=== PATIENT | male | born 1970 | race Caucasian/White ===

== ENCOUNTER 2017-11-28 23:15 | Inpatient (IN) | payer SELFPAY ==
[2017-11-28] MEDS ORDERED: ONDANSETRON PF 4 MG/2 ML VIAL. ×2 (23:37)
[2017-11-28] MEDS: ONDANSETRON PF 4 MG/2 ML VIAL. IV ×2 (23:45)
[2017-11-28] MEDS: IV NORMAL SALINE 1000ML BAG 1,000 ML IV ×2 (23:45)
[2017-11-29] MEDS: fentaNYL PF VIAL 100 MCG/2 ML VIAL IV ×2 (00:15)
[2017-11-29] MEDS: KETOROLAC 30 MG/ML INJ. IV ×2 (00:15)
[2017-11-29 00:22] LABS: ADD MAN DIFF? YES; BASO % 0 % (0-3); EOS % 0 % (0-3); HEMATOCRIT 42.8 % (39.0-53.0); HEMOGLOBIN 14.6 g/dL (13.0-17.5); LYMPH % 8 % (24-48); MEAN CORPUSCULAR HEMOGLOBIN 30 pg (25-35); MEAN CORPUSCULAR HGB CONC 34 g/dL (31-37); MEAN CORPUSCULAR VOLUME 88 fL (79-100); MONO # 0.7 x10^3/uL (0.0-1.1); MONO % 6 % (0-9); NEUT % 86 % (31-73); PLATELET COUNT 205 x10^3/uL (140-400); RED BLOOD COUNT 4.89 x10^6/uL (4.30-5.70); RED CELL DISTRIBUTION WIDTH 13.9 % (11.5-14.5); WHITE BLOOD COUNT 12.8 x10^3/uL (4.0-11.0)
[2017-11-29 00:28] LABS: BILIRUBIN,URINE NEGATIVE (NEG); CLARITY,URINE CLOUDY; COLOR,URINE YELLOW; GLUCOSE,URINE >=1000 mg/dL (NEG); NITRITE,URINE NEGATIVE (NEG); PROTEIN,URINE 100 mg/dL (NEG-TRACE); UROBILINOGEN,URINE 0.2 mg/dL (0.2 mg/dL)
[2017-11-29 00:35] LABS: ALBUMIN 3.4 g/dL (3.4-5.0); ALBUMIN/GLOBULIN RATIO 0.9 (1.0-1.7); ALK PHOS 114 U/L (46-116); ALT (SGPT) 24 U/L (16-63); ANION GAP 11 (6-14); AST (SGOT) 13 U/L (15-37); BLOOD UREA NITROGEN 20 mg/dL (8-26); BUN/CREATININE RATIO 15 (6-20); CALCIUM 9.1 mg/dL (8.5-10.1); CARBON DIOXIDE 26 mmol/L (21-32); CHLORIDE 98 mmol/L (98-107); CREATININE 1.3 mg/dL (0.7-1.3); GFR 59.4; LIPASE 129 U/L (73-393); SODIUM 135 mmol/L (136-145); TOTAL BILIRUBIN 0.2 mg/dL (0.2-1.0); TOTAL PROTEIN 7.3 g/dL (6.4-8.2)
[2017-11-29 00:36] LABS: GLUCOSE 579 mg/dL (70-99)
[2017-11-29 00:43] LABS: BACTERIA,URINE FEW /HPF (0-FEW); SQUAMOUS EPITHELIAL CELL,UR FEW /LPF; WBC,URINE TNTC /HPF (0-4); YEAST,URINE PRESENT /HPF
[2017-11-29] MEDS ORDERED: ONDANSETRON PF 4 MG/2 ML VIAL. IV ×2 (01:00)
[2017-11-29] MEDS ORDERED: ACETAMINOPHEN 325 MG TABLET. PO ×2 (01:00)
[2017-11-29] MEDS: IV NORMAL SALINE 1000ML BAG 1,000 ML IV ×6 (01:00→17:57)
[2017-11-29] MEDS ORDERED: fentaNYL PF VIAL 100 MCG/2 ML VIAL IV ×2 (01:00)
[2017-11-29 01:18] LABS: % BANDS 3 % (0-9); % EOS 2 % (0-5); % LYMPHS 8 % (24-48); % MONOS 2 % (0-10); % SEGS 85 % (35-66); PLT ESTIMATE ADEQUATE (ADEQUATE)
[2017-11-29 03:14] LABS: POC GLUCOSE 502 mg/dL (70-99)
[2017-11-29] MEDS: INSULIN ASPART 300 UNITS/3 ML INSULN.PEN SQ ×16 (03:40→21:51)
[2017-11-29 03:48] LABS: LACTIC ACID 0.8 mmol/L (0.4-2.0)
[2017-11-29 04:25] LABS: POC GLUCOSE 551 mg/dL (70-99)
[2017-11-29] MEDS ORDERED: DEXTROSE 50% 25 GM / 50ML DISP.SYRIN. IV ×2 (08:00)
[2017-11-29 08:02] LABS: POC GLUCOSE 393 mg/dL (70-99)
[2017-11-29] MEDS: metFORMIN 500 MG TABLET PO ×4 (09:43→17:51)
[2017-11-29 11:34] LABS: POC GLUCOSE 297 mg/dL (70-99)
[2017-11-29] MEDS: TAMSULOSIN 0.4 MG CAP.ER.24H. PO ×4 (12:29→21:43)
[2017-11-29 16:23] LABS: POC GLUCOSE 173 mg/dL (70-99)
[2017-11-29 21:09] LABS: POC GLUCOSE 337 mg/dL (70-99)
[2017-11-29] MEDS: cefTRIAXone IV Push 1 GM VIAL. IVP ×2 (21:42)
[2017-11-29] MEDS: INSULIN DETEMIR 300 UNITS/3 ML INSULN.PEN. SQ ×2 (21:48)
[2017-11-30 05:23] LABS: ADD MAN DIFF? NO
[2017-11-30 05:47] LABS: BASO % 1 % (0-3); EOS # 0.1 x10^3/uL (0.0-0.7); EOS % 2 % (0-3); HEMATOCRIT 34.6 % (39.0-53.0); HEMOGLOBIN 11.8 g/dL (13.0-17.5); LYMPH # 1.4 x10^3/uL (1.0-4.8); LYMPH % 26 % (24-48); MEAN CORPUSCULAR HEMOGLOBIN 30 pg (25-35); MEAN CORPUSCULAR HGB CONC 34 g/dL (31-37); MEAN CORPUSCULAR VOLUME 87 fL (79-100); MONO # 0.4 x10^3/uL (0.0-1.1); MONO % 7 % (0-9); NEUT # 3.4 x10^3uL (1.8-7.7); NEUT % 65 % (31-73); PLATELET COUNT 146 x10^3/uL (140-400); RED BLOOD COUNT 3.97 x10^6/uL (4.30-5.70); RED CELL DISTRIBUTION WIDTH 13.8 % (11.5-14.5); WHITE BLOOD COUNT 5.3 x10^3/uL (4.0-11.0)
[2017-11-30 05:57] LABS: ALBUMIN 2.3 g/dL (3.4-5.0); ALBUMIN/GLOBULIN RATIO 0.7 (1.0-1.7); ALK PHOS 78 U/L (46-116); ALT (SGPT) 6 U/L (16-63); ANION GAP 4 (6-14); AST (SGOT) 10 U/L (15-37); BLOOD UREA NITROGEN 15 mg/dL (8-26); BUN/CREATININE RATIO 17 (6-20); CALCIUM 8.1 mg/dL (8.5-10.1); CARBON DIOXIDE 28 mmol/L (21-32); CHLORIDE 108 mmol/L (98-107); CREATININE 0.9 mg/dL (0.7-1.3); GFR 90.8; GLUCOSE 282 mg/dL (70-99); POTASSIUM 3.8 mmol/L (3.5-5.1); SODIUM 140 mmol/L (136-145); TOTAL BILIRUBIN 0.1 mg/dL (0.2-1.0); TOTAL PROTEIN 5.4 g/dL (6.4-8.2)
[2017-11-30 08:15] LABS: POC GLUCOSE 411 mg/dL (70-99)
[2017-11-30] MEDS: LACTOBACILLUS RHAMNOSUS GG 1 CAPSULE. PO ×2 (08:34)
[2017-11-30] MEDS: TAMSULOSIN 0.4 MG CAP.ER.24H. PO ×2 (08:34)
[2017-11-30] MEDS: metFORMIN 500 MG TABLET PO ×2 (08:35)
[2017-11-30] MEDS: INSULIN ASPART 300 UNITS/3 ML INSULN.PEN SQ ×8 (08:43→13:05)
[2017-11-30 11:19] LABS: POC GLUCOSE 239 mg/dL (70-99)
[2017-11-30] MEDS: POLYETHYLENE GLYCOL 3350 17 GM PACKET. PO ×2 (12:57)
[2017-11-30] MEDS: DOCUSATE SODIUM 100 MG CAPSULE. PO ×2 (12:58)
[2017-11-30 15:13] LABS: HEMOGLOBIN A1C 11.8 % (4.8-5.6)
== END 2017-11-30 19:49 | disposition home or self-care (01) | DRG 872 ==
LOC: ER 23:15 → 4 NORTH 11-29 00:52
DX: A41.9 Sepsis, unspecified organism (principal); E11.65 Type 2 diabetes mellitus with hyperglycemia; N13.30 Unspecified hydronephrosis; N39.0 Urinary tract infection, site not specified; N41.0 Acute prostatitis
CPT/HCPCS: 36415; 74176; 80053; 81001; 82962; 83036; 83605; 83690; 85007; 85025; 87040; 87086; 96365; 96366; 96375; 99285; 99285-25; J0690; J0696; J1815; J1885; J2405; J3010; J7030

== ENCOUNTER 2017-12-02 12:31 | Emergency (ER) | payer OTHER ==
[2017-12-02 16:11] LABS: BILIRUBIN,URINE NEGATIVE (NEG); CLARITY,URINE CLOUDY; COLOR,URINE YELLOW; GLUCOSE,URINE >=1000 mg/dL (NEG); NITRITE,URINE NEGATIVE (NEG); PROTEIN,URINE >=300 mg/dL (NEG-TRACE); UROBILINOGEN,URINE 0.2 mg/dL (0.2 mg/dL)
[2017-12-02 16:50] LABS: RBC,URINE >40 /HPF (0-2)
[2017-12-02 16:52] LABS: BACTERIA,URINE 0 /HPF (0-FEW); SQUAMOUS EPITHELIAL CELL,UR OCC /LPF
[2017-12-02] MEDS: cefTRIAXone IM 1 GM VIAL IM (18:31)
== END 2017-12-02 18:51 | disposition home or self-care (01) ==
LOC: ER 18:51
DX: N39.0 Urinary tract infection, site not specified (principal); T83.038A Leakage of other urinary catheter, initial encounter; E11.9 Type 2 diabetes mellitus without complications; N40.1 Benign prostatic hyperplasia with lower urinary tract symptoms; Y84.6 Urinary catheterization as the cause of abnormal reaction of the patient, or of later complication, without mention of misadventure at the time of the procedure
CPT/HCPCS: 51702; 81001; 96372; 99284-25; J0696

== ENCOUNTER 2017-12-03 16:59 | Emergency (ER) | payer OTHER | END 2017-12-03 17:38 | disposition left against medical advice (07) | LOC: ER 16:59 | DX: T83.038A Leakage of other urinary catheter, initial encounter (principal); E11.9 Type 2 diabetes mellitus without complications; N40.0 Benign prostatic hyperplasia without lower urinary tract symptoms; Z87.440 Personal history of urinary (tract) infections; Z87.891 Personal history of nicotine dependence; Z53.21 Procedure and treatment not carried out due to patient leaving prior to being seen by health care provider; Y84.6 Urinary catheterization as the cause of abnormal reaction of the patient, or of later complication, without mention of misadventure at the time of the procedure; Y92.89 Other specified places as the place of occurrence of the external cause ==